=== PATIENT | female | born 1995 | race Caucasian/White ===

== ENCOUNTER 2021-01-31 03:43 | Inpatient (IN) | payer MEDICARE, SELFPAY ==
--- NOTE | 2021-01-30 07:40 | ECG_ITS ---
Test Reason : REPEAT Blood Pressure : / mmHG Vent. Rate : 130 BPM Atrial Rate : 130 BPM P-R Int : 132 ms QRS Dur : 082 ms QT Int : 302 ms P-R-T Axes : 049 027 035 degrees QTc Int : 444 ms Sinus tachycardia Nonspecific ST abnormality Abnormal ECG When compared with ECG of 31-JAN-2021 04:01, Vent. rate has increased BY [address] abnormality is now Present Referred By: Darryl Scruggs Electronically Signed By:RAIMUNDO WHITING
[2021-01-31] VITALS (21 sets, daily range): BP systolic 103–188; BP diastolic 52–96; PULSE 102–143; RESP 12–28; TEMP 36.4–37; O2SAT 93–100; BMI 44.7; BMI 44.8
--- NOTE | 2021-01-31 | ECG_ITS ---
Test Reason : SIEZER Blood Pressure : / mmHG Vent. Rate : 123 BPM Atrial Rate : 123 BPM P-R Int : 138 ms QRS Dur : 088 ms QT Int : 324 ms P-R-T Axes : 061 040 032 degrees QTc Int : 463 ms Sinus tachycardia Nonspecific ST abnormality Abnormal ECG When compared with ECG of 31-JAN-2021 05:02, No significant change was found Referred By: Darryl Scruggs Electronically Signed By:RAIMUNDO WHITING
--- NOTE | ~2021-01-31 | XR_ITS ---
EXAMINATION: XR CHEST CLINICAL INFORMATION: Hypoxemia. Rule out pneumonia. COMPARISON: None TECHNIQUE: Frontal view of the chest was obtained. FINDINGS: Exam is slightly limited due to apical lordotic technique. The lung volumes are low. The heart does not appear enlarged. There are increased left hilar markings particularly at the left lung base questionable for a pneumonia. The right lung is clear. There is no pleural effusion or pneumothorax. No acute bone abnormality is seen. XR/XR chest 1V IMPRESSION: Limited exam. Low lung volumes and question left perihilar/left base infiltrate.
--- NOTE | 2021-01-31 03:51 | ECG_ITS ---
Test Reason : OD Blood Pressure : / mmHG Vent. Rate : 083 BPM Atrial Rate : 083 BPM P-R Int : 136 ms QRS Dur : 082 ms QT Int : 370 ms P-R-T Axes : 071 053 048 degrees QTc Int : 434 ms Normal sinus rhythm with sinus arrhythmia Normal ECG No previous ECGs available Referred By: Raghu Yañez Electronically Signed By:RAIMUNDO WHITING
--- NOTE | 2021-01-31 03:54 | ED_ITS ---
HPI - Overdose General Chief Complaint: Overdose Stated Complaint: ? Time Seen by Provider: 01/31/21 03:51 Source: patient, EMS and police Mode of arrival: EMS Limitations: no limitations History of Present Illness HPI Narrative: 25-year-old female brought in by EMS for evaluation of overdose on her psych medication. 25-year-old female who intentionally overdosed on about 34 pills of Wellbutrin 300 mg each about 1 hour ago trying to kill herself, patient been feeling depressed lately for unclear reason, patient had history of overdose in the past due to major depression. Patient decline coingestion of any other medication in particular Tylenol or aspirin but admitted to smoking weed. Patient brought in by ambulance and the police under Section 12. Will keep the patient on one-to-one observation. Related Data Allergies Allergy/AdvReac Type Severity Reaction Status Date / Time amoxicillin [Prevpac] Allergy Unknown Verified 04/22/19 00:00 cephalexin [From KEFLEX] Allergy Unknown HIVES Unverified 02/16/20 19:11 clarithromycin [Prevpac] Allergy Unknown Verified 04/22/19 00:00 lansoprazole [Prevpac] Allergy Unknown Verified 04/22/19 00:00 omeprazole [Prilosec] Allergy Unknown Verified 01/17/19 00:00 Review of Systems Review of Systems: All other systems are reviewed and are negative Constitutional: Reports as per HPI and Reports no additional constitutional complaints Eyes: Reports as per HPI and Reports no additional eye complaints Reports system reviewed and no additional complaints, except as documented Cardiovascular: Reports as per HPI and Reports no additional cardiovascular complaints Respiratory: Reports as per HPI and Reports no additional respiratory complaints Gastrointestinal: Reports as per HPI and Reports no additional gastrointestinal complaints Genitourinary: Reports no additional female genitourinary complaints Musculoskeletal: Reports no additional musculoskeletal complaints Skin/Breast: Reports system reviewed and no additional complaints, except as docu Psychiatric: Reports no additional psychiatric complaints Endocrine: Reports no additional endocrine complaints Hematologic/Lymphatic: Reports no additional hematologic/lymphatic complaints Allergic/Immunologic: Reports no additional allergic/immunologic complaints Reports system reviewed and no additional complaints, except as documented and Reports Abnormal speech present [facility] Past Medical History Medical History (Updated 01/31/21 @ 04:03 by Annmarie Schmidt) Depersonalization disorder Depression PTSD (post-traumatic stress disorder) Social History Social History Alcohol intake: never Patient Tobacco Use Status: Current everyday Tobacco user Use of substances other than those prescribed or required for medical reasons: Yes Substance Use Type: Crack/Cocaine and Marijuana Substance Use Frequency: Weekly Last Used Substance: Just Prior to Admission Any prior treatment program specific to substance use: No Advance Directives: No Advance Directives Information Provided: Yes Physical Exam Vital Signs: Vital Signs: Last Vital Signs Pulse 143 H 01/31/21 04:42 Resp 14 01/31/21 04:42 BP 160/96 H 01/31/21 04:42 Pulse Ox 99 01/31/21 04:42 Body Mass Index 44.7 Vital signs have been reviewed as appeared to be correct. Blood pressure normal. Heart rate normal. Respiration rate normal. Temperature normal. Oxygen saturation normal. Appearance: Alert. Oriented X3. No acute distress. Head: Normal external exam. Normocephalic. Atraumatic. No Stinson signs noted. No raccoon eyes noted Eyes: PERRLA. EOMI. Conjunctiva and sclera normal. Eyelids normal. ENT: TM's Normal. Pharynx normal. Uvula midline. Moist mucous membranes. No trismus noted. No drooling noted. No muffled voice noted. Neck: Normal inspection. Neck supple. FROM. No adenopathy. Thyroid Normal. No meningeal signs. No neck mass noted. CVS: Normal heart rate and rhythm. Heart sound normal. No murmurs noted. Pulses normal throughout. Respiratory: No respiratory distress. Painless inspiration. Breath sounds normal. No wheezes/rales/rhonchi noted. Chest nontender. No accessory muscle usage noted or decreased air movement noted. Abdomen: Soft and nontender. Bowel sounds normal in all 4 quadrants. No distention noted. No organomegaly noted. No visible injury noted. Back: No CVA tenderness. Full range of motion noted. Skin: Skin warm and dry. Normal skin color. Normal skin turgor. No rashes/lesions/lacerations noted. Extremities: No lower extremity edema. Extremities exhibit normal range of motion. Extremities nontender. Neuro: Oriented X 3. Cranial nerve exam: II-XII are grossly intact No motor deficit. No sensory deficit. Reflexes normal. Course Course Course Narrative: Assessment and plan. 25-year-old female status post intention overdose on Wellbutrin patient took 34 pills of 300 mg each of Wellbutrin about 1 hour before arrival, patient under [place] 12 by the police. At the moment patient is awake and alert protecting her own airway. Wellbutrin and this high dose ingestion can cause a potential hypotension/bradycardia/tachycardia/hallucinations/seizure. Poison Control Center was consulted who recommend to monitor airway and consider airway protection if patient unable to protect it, GoLYTELY, activated charcoal, ICU admission and monitoring for at least 24 hours, psych evaluation when she is medically cleared. Reevaluation(s) Reevaluation #1: Patient is awake alert oriented x3, heart rate is 140 EKG was performed showed sinus tachycardia with normal intervals. Patient still feel nauseous but no vomiting, no change in the patient mental status. Case discussed with Dr. henry at ICU who accepted the patient to be monitored for 24 hours in ICU. Time: 05:06 MDM - Overdose Lab Data Attestation: I reviewed the patient's lab results. Result diagrams: 01/31/21 04:06 01/31/21 04:06 Labs: Lab Results 01/31/21 01/31/21 01/31/21 Range/Units 04:06 04:06 04:06 WBC 15.3 H (4.8-10.8) X10*3/uL RBC 4.52 (4.20-5.50) X10*6/uL Hgb 14.5 (12.0-16.0) g/dl Hct 41.8 (37-47) % MCV 92.5 (80-98) fL MCH 32.1 (27.0-33.0) pg MCHC 34.7 (31.0-35.0) g/dl RDW 12.9 (11.0-16.0) % Plt Count 327 (160-400) X10*3/uL MPV 10.2 (9.4-12.3) fL Immature Gran % (Auto) 0.3 (0.0-0.4) % Neut % (Auto) 60.2 (45-73) % Lymph % (Auto) 31.5 (20-40) % [place] % (Auto) 6.7 (2-11) % Eos % (Auto) 1.0 (0-4) % Baso % (Auto) 0.3 (0-2) % Lymph # (Auto) 4.8 (1.2-4.9) X10*3/uL [place] # (Auto) 1.0 (0.1-1.2) X10*3/uL Eos # (Auto) 0.2 (0.0-0.4) X10*3/uL Baso # (Auto) 0.0 (0.0-0.2) X10*3/uL Abs Immat Gran (auto) 0.04 H (0.00-0.03) X10*3/uL Absolute Neuts (auto) 9.2 H (2.0-8.3) X10*3/uL Absolute Nucleated RBC 0.000 (0.0-0.012) X10*3/uL Nucleated RBC % (auto) 0.0 (0.0-0.2) /100WBC Sodium 135 (135-145) mmol/L Potassium 4.1 (3.3-5.1) mmol/L Chloride 104 (96-108) mmol/L Carbon Dioxide 19 L (22-29) mmol/L Anion Gap 16 (12-20) BUN 13 (9-16) mg/dL Creatinine 0.75 (0.5-1.4) mg/dL Estim Creat Clear Calc 146.3 Estimated GFR > 60 Random Glucose 107 (60-115) mg/dL Calcium 9.4 (8.4-10.2) mg/dL Total Bilirubin 0.3 (0.0-1.0) mg/dL Direct Bilirubin < 0.2 (0.0-0.5) mg/dL AST 25 (5-31) U/L ALT 25 (0-31) U/L Alkaline Phosphatase 69 (39-117) U/L Total Protein 7.2 (6.5-8.0) g/dL Albumin 4.2 (3.5-5.0) g/dL Lipase 13 (8-78) U/L Urine Color Urine Appearance Urine pH (5.0-8.0) Ur Specific [place] (1.005-1.025) Urine Protein (NEG-TRACE) MG/DL Urine Glucose (UA) (NEG) MG/DL Urine Ketones (NEG) MG/DL Urine Blood (NEG) Urine Nitrite (NEG) Ur Leukocyte Esterase (NEG) Urine Test (NEGATIVE) Salicylates < 5.0 L (15-30) mg/dL Urine Opiates Screen (Not Detect) Urine Fentanyl Screen (Not Detect) Acetaminophen < 1 (<30) mcg/mL Ur Barbiturates Screen (Not Detect) Ur Phencyclidine Scrn (Not Detect) Ur Amphetamines Screen (Not Detect) U Benzodiazepines Scrn (Not Detect) Urine Cocaine Screen (Not Detect) U Marijuana (THC) Screen (Not Detect) Ethyl Alcohol mg/dL COVID-19 (DYLAN) Negative (Negative) COVID-19 Clin Com See Note 01/31/21 01/31/21 01/31/21 Range/Units 04:06 Unknown Unknown WBC (4.8-10.8) X10*3/uL RBC (4.20-5.50) X10*6/uL Hgb (12.0-16.0) g/dl Hct (37-47) % MCV (80-98) fL MCH (27.0-33.0) pg MCHC (31.0-35.0) g/dl RDW (11.0-16.0) % Plt Count (160-400) X10*3/uL MPV (9.4-12.3) fL Immature Gran % (Auto) (0.0-0.4) % Neut % (Auto) (45-73) % Lymph % (Auto) (20-40) % [place] % (Auto) (2-11) % Eos % (Auto) (0-4) % Baso % (Auto) (0-2) % Lymph # (Auto) (1.2-4.9) X10*3/uL [place] # (Auto) (0.1-1.2) X10*3/uL Eos # (Auto) (0.0-0.4) X10*3/uL Baso # (Auto) (0.0-0.2) X10*3/uL Abs Immat Gran (auto) (0.00-0.03) X10*3/uL Absolute Neuts (auto) (2.0-8.3) X10*3/uL Absolute Nucleated RBC (0.0-0.012) X10*3/uL Nucleated RBC % (auto) (0.0-0.2) /100WBC Sodium (135-145) mmol/L Potassium (3.3-5.1) mmol/L Chloride (96-108) mmol/L Carbon Dioxide (22-29) mmol/L Anion Gap (12-20) BUN (9-16) mg/dL Creatinine (0.5-1.4) mg/dL Estim Creat Clear Calc Estimated GFR Random Glucose (60-115) mg/dL Calcium (8.4-10.2) mg/dL Total Bilirubin (0.0-1.0) mg/dL Direct Bilirubin (0.0-0.5) mg/dL AST (5-31) U/L ALT (0-31) U/L Alkaline Phosphatase (39-117) U/L Total Protein (6.5-8.0) g/dL Albumin (3.5-5.0) g/dL Lipase (8-78) U/L Urine Color YELLOW Urine Appearance CLEAR Urine pH 6.0 (5.0-8.0) Ur Specific [place] 1.015 (1.005-1.025) Urine Protein NEG (NEG-TRACE) MG/DL Urine Glucose (UA) NEG (NEG) MG/DL Urine Ketones NEG (NEG) MG/DL Urine Blood NEG (NEG) Urine Nitrite NEG (NEG) Ur Leukocyte Esterase NEG (NEG) Urine Test NEGATIVE (NEGATIVE) Salicylates (15-30) mg/dL Urine Opiates Screen (Not Detect) Urine Fentanyl Screen (Not Detect) Acetaminophen (<30) mcg/mL Ur Barbiturates Screen (Not Detect) Ur Phencyclidine Scrn (Not Detect) Ur Amphetamines Screen (Not Detect) U Benzodiazepines Scrn (Not Detect) Urine Cocaine Screen (Not Detect) U Marijuana (THC) Screen (Not Detect) Ethyl Alcohol < 10 mg/dL COVID-19 (DYLAN) (Negative) COVID-19 Clin Com 01/31/21 Range/Units Unknown WBC (4.8-10.8) X10*3/uL RBC (4.20-5.50) X10*6/uL Hgb (12.0-16.0) g/dl Hct (37-47) % MCV (80-98) fL MCH (27.0-33.0) pg MCHC (31.0-35.0) g/dl RDW (11.0-16.0) % Plt Count (160-400) X10*3/uL MPV (9.4-12.3) fL Immature Gran % (Auto) (0.0-0.4) % Neut % (Auto) (45-73) % Lymph % (Auto) (20-40) % [place] % (Auto) (2-11) % Eos % (Auto) (0-4) % Baso % (Auto) (0-2) % Lymph # (Auto) (1.2-4.9) X10*3/uL [place] # (Auto) (0.1-1.2) X10*3/uL Eos # (Auto) (0.0-0.4) X10*3/uL Baso # (Auto) (0.0-0.2) X10*3/uL Abs Immat Gran (auto) (0.00-0.03) X10*3/uL Absolute Neuts (auto) (2.0-8.3) X10*3/uL Absolute Nucleated RBC (0.0-0.012) X10*3/uL Nucleated RBC % (auto) (0.0-0.2) /100WBC Sodium (135-145) mmol/L Potassium (3.3-5.1) mmol/L Chloride (96-108) mmol/L Carbon Dioxide (22-29) mmol/L Anion Gap (12-20) BUN (9-16) mg/dL Creatinine (0.5-1.4) mg/dL Estim Creat Clear Calc Estimated GFR Random Glucose (60-115) mg/dL Calcium (8.4-10.2) mg/dL Total Bilirubin (0.0-1.0) mg/dL Direct Bilirubin (0.0-0.5) mg/dL AST (5-31) U/L ALT (0-31) U/L Alkaline Phosphatase (39-117) U/L Total Protein (6.5-8.0) g/dL Albumin (3.5-5.0) g/dL Lipase (8-78) U/L Urine Color Urine Appearance Urine pH (5.0-8.0) Ur Specific [place] (1.005-1.025) Urine Protein (NEG-TRACE) MG/DL Urine Glucose (UA) (NEG) MG/DL Urine Ketones (NEG) MG/DL Urine Blood (NEG) Urine Nitrite (NEG) Ur Leukocyte Esterase (NEG) Urine Test (NEGATIVE) Salicylates (15-30) mg/dL Urine Opiates Screen Not Detected (Not Detect) Urine Fentanyl Screen Not Detected (Not Detect) Acetaminophen (<30) mcg/mL Ur Barbiturates Screen Not Detected (Not Detect) Ur Phencyclidine Scrn Not Detected (Not Detect) Ur Amphetamines Screen Not Detected (Not Detect) U Benzodiazepines Scrn Not Detected (Not Detect) Urine Cocaine Screen POSITIVE H (Not Detect) U Marijuana (THC) Screen POSITIVE H (Not Detect) Ethyl Alcohol mg/dL COVID-19 (DYLAN) (Negative) COVID-19 Clin Com ECG Data Interpretation: EKG 1. Normal sinus rhythm at 83 beats per minutes, normal axis deviation, normal intervals, no ST-T changes. EKG 2. Sinus tachycardia at 130 beats per minutes, normal axis deviation, normal intervals, no ST-T changes. Critical Care Time Critical Care Time Critical Care Time: Yes Total Critical Care Time: 60 Attestation: I spent 60 minutes providing critical care service to the patient, this including time spent at the bedside to evaluate the patient, reassess the patient, monitoring vital signs, review labs, and radiographic studies, counseling the patient/family, discussing the case with consultants, disposition the patient. Discharge Plan Discharge Patient Disposition: Admitted As Inpatient
[2021-01-31 04:12] LABS: MANUAL DIFF FLAG NO
[2021-01-31 04:14] LABS: Basophils Percent Auto 0.3 % (0-2); Eosinophils Absolute Auto 0.2 X10*3/uL (0.0-0.4); Hematocrit 41.8 % (37-47); Hemoglobin 14.5 g/dl (12.0-16.0); Imm Gran Abs Auto 0.04 X10*3/uL (0.00-0.03); Imm Gran Pct Auto 0.3 % (0.0-0.4); Lymphocytes Absolute Auto 4.8 X10*3/uL (1.2-4.9); Lymphocytes Percent Auto 31.5 % (20-40); Mean Corpuscular HGB Conc 34.7 g/dl (31.0-35.0); Mean Corpuscular Hemoglobin 32.1 pg (27.0-33.0); Mean Corpuscular Volume 92.5 fL (80-98); Mean Platelet Volume 10.2 fL (9.4-12.3); Monocytes Percent Auto 6.7 % (2-11); Neutrophils Absolute Auto 9.2 X10*3/uL (2.0-8.3); Neutrophils Percent Auto 60.2 % (45-73); Platelet Count 327 X10*3/uL (160-400); Red Blood Count 4.52 X10*6/uL (4.20-5.50); Red Cell Distribution Width 12.9 % (11.0-16.0); White Blood Count 15.3 X10*3/uL (4.8-10.8)
[2021-01-31] MEDS: Activated charcoaL 50 GM/240 ML ORAL.SUSP PO (04:22)
[2021-01-31] MEDS: ondansetron HCL 4 MG/2 ML VIAL IVPUSH (04:23)
[2021-01-31] MEDS: 0.9 % Sodium Chloride 1,000 ML 999 ML IVCONT (04:23)
[2021-01-31 04:27] LABS: COVID-19 Test Negative (Negative); IDNOW Serial# 9DD0AD1C
[2021-01-31 04:34] LABS: Ethanol < 10 mg/dL
[2021-01-31 04:36] LABS: Acetaminophen LAB < 1 mcg/mL (<30); Alanine Aminotransferase 25 U/L (0-31); Albumin Level 4.2 g/dL (3.5-5.0); Alkaline Phosphatase 69 U/L (39-117); Anion Gap 16 (12-20); Aspartate Amino Transferase 25 U/L (5-31); Bilirubin Direct < 0.2 mg/dL (0.0-0.5); Bilirubin Total 0.3 mg/dL (0.0-1.0); Blood Urea Nitrogen 13 mg/dL (9-16); Calcium 9.4 mg/dL (8.4-10.2); Carbon Dioxide 19 mmol/L (22-29); Chloride 104 mmol/L (96-108); Creatinine Clr Calc Pharmacy 146.3; Estimated Glomerular Filt Rate > 60; Glucose Random 107 mg/dL (60-115); Lipase 13 U/L (8-78); Potassium 4.1 mmol/L (3.3-5.1); Salicylate < 5.0 mg/dL (15-30); Sodium 135 mmol/L (135-145); Total Protein 7.2 g/dL (6.5-8.0)
--- NOTE | 2021-01-31 04:45 | PC.NURSE ---
pt is section 12 after taking 34pills of 300mg of wellbutrin. pt is A&O. no sob or chest pain. pt is able to answer all questions appropriately. medicated per EMAR. Poision control called and did speak with provider. Pt is tachy with a heart 130-high 140's at this time and hypertension. Provider is aware. Repeat EKg .
[2021-01-31 04:46] LABS: Appearance Urine CLEAR; Color Urine YELLOW; Glucose Urine UA NEG (NEG); Leukocyte Esterase Urine NEG (NEG); Nitrite Urine NEG (NEG); Specific Gravity - Urine 1.015 (1.005-1.025); UACC Culture Trigger NO; Urine Blood NEG (NEG); Urine Ketones NEG (NEG); Urine Protein NEG (NEG-TRACE)
[2021-01-31 04:47] LABS: UPreg QC Valid YES; Urine Pregnancy NEGATIVE (NEGATIVE)
[2021-01-31] MEDS: PEG 3350/Na Sulf,Bicarb,Cl/KCL 4,000 ML SOLN.RECON 240 ML PO ×5 (04:54→06:35)
--- NOTE | 2021-01-31 04:57 | PC.NURSE ---
pt report hallucinations, provider is aware.
[2021-01-31 04:59] LABS: Amphetamine Screen Urine Not Detected (Not Detect); Barbiturates, Urine Not Detected (Not Detect); Benzodiazepines Screen Urine Not Detected (Not Detect); Cannabinoid Screen Urine POSITIVE (Not Detect); Cocaine Screen Urine POSITIVE (Not Detect); Fentanyl, urine Not Detected (Not Detect); Opiate Screen Urine Not Detected (Not Detect); Phencyclidine Screen Urine Not Detected (Not Detect)
--- NOTE | 2021-01-31 04:59 | PC.NURSE ---
provider in to assess pt, pt is able to answer question appropriately, pt is A&O
--- NOTE | 2021-01-31 05:06 | P.HPCC_ITS ---
History of Present Illness Date of Service: 01/31/21 Chief Complaint: Suicidal attempt with Wellbutrin HPI: ?25-year-old patient with history of anxiety, depression, prior suicidal attempts by pill ingestion, history of cocaine use, presents to our services after being seen in the emergency room due to suicidal attempt, is known the patient was brought by EMS and polys after intentionally taking approximately 34 pills of Wellbutrin) 300 mg each) this happened approximately 230 in the morning.? Patient admitted to smoking marijuana but denied the possibility of ingesting this pills with alcohol or other substances such as Tylenol or aspirin.? The patient was brought on the [address]. Patient is not willing to talk to me about why she did this.? Currently states that the only thing that she feels is her heart beating a little fast. When asked about hallucinations of any kind, homicidal ideation or the reasons of her attempt, the patient did not want to speak about it. Emergency room her workup was significant for white count 15.3 carbon dioxide of 19 and a U tox screen negative for salicylates, Tylenol but positive for cocaine and marijuana.? COVID-19 negative.? All other labs were unremarkable.? Patient remains hemodynamically stable and there is no QT prolongation at this point. ?ROS:? Unable to obtain, patient not volunteering this information. ?Past Medical History: ?As above Past Surgical History:? Endoscopy ?Family history: ?Unknown ?Social History:? Lives with her boyfriend, smokes 1 pack of cigarettes per day, admits to social alcohol, admits to use of cocaine in the past but not for a while. ?CODE STATUS: ?Full code ?Allergies: ?Amoxicillin, Keflex, lansoprazole, pretzel, clarithromycin (hives Home Medications:? As above PHYSICAL EXAM: VS: ?130/85, 122, 17, 95% on room air. General:? Alert oriented x3 no acute distress.? Speaking full sentences.? Speech is well articulated, thought process is coherent.? Following all commands.? Slow speech, poor eye contact. Skin:? Multiple tattoos throughout the body specially bilateral upper extremities.? Intact, no lesions, edema, erythema, clubbing or cyanosis.? No ulcers. HEENT:? Head is normocephalic, atraumatic, pupils equal round reactive to light accommodation bilaterally.? Extraocular movements appear intact.? Buccal mucosa is moist, Neck is supple without lymphadenopathy. Cardiac:? Clear S1-S2, tachycardic 120 beats per minute.? No murmurs, rubs, gallops. Pulmonary:? Clear to auscultation, no wheezes, rales or rhonchi. Abdomen:? Protuberant, positive bowel sounds in all 4 quadrants.? Soft, nontender, no rebound or guarding.? Musculoskeletal:? Moving all 4 extremities upon request a major joints, there is no crepitus or tenderness.? The strength is 5/5 bilaterally and throughout all 4 extremities.? There is no leg edema , no calf tenderness , no leg asymmetry.? Gait not assessed at this point. Neurologic:? As above, cranial nerves 2-12 are grossly intact.? No focal deficits noted. Motor strength as above.? Vascular:? 2+ pulses upper and lower extremities distally. ? SIGNIFICANT LABORATORY DATA:? As above REVIEW OF IMAGES: ?No images. EKG REVIEW: ?Sinus rhythm 83 beats per minute.? No ST elevations, no depressions.? QTC 434. No comparison. ASSESSMENT AND PLAN: 1. Intentional overdose with Wellbutrin 2. Suicidal ideation 3. Polysubstance abuse 4. History of depression anxiety 5. Reactive tachycardia Admit to ICU, monitor I's and O's, telemetry, gentle IV fluids, one-to-one surveillance, psychiatric evaluation, monitor labs. Pt is getting joanne and Poison control was contacted by ER. If stable after 24 hours she can transition to the next level of care. In the meantime watch for seizures, severe hypertension, arrhythmias, signifi cant hyponatremia although unlikely for these usually presents in early times. Otherwise normal effects from this medication may be headache, nausea, diaphoresis, dizziness GI PROPHYLAXIS: ?No need at this point. DVT PROPHYLAXIS:? Pneumatic stockings and early ambulation ? Critical care time used for critical evaluation of this patient, diagnosis, treatment and coordination of care, review her records and documentation TOTAL CRITICAL CARE TIME 90 MIN . Patient's care was discussed in detail with Dr. Scruggs.? He is aware of all the above as well as the plan of care for this patient. [facility] Past Medical History Medical History (Updated 01/31/21 @ 06:12 by Annmarie Schmidt) Depersonalization disorder Depression PTSD (post-traumatic stress disorder) Social History Social History Household Members: Significant Other and Family Housing: House Do you presently have visiting nurse or other home services: No Unable to assess alcohol history related to: Unable to respond Alcohol intake: never Patient Tobacco Use Status: Current everyday Tobacco user Tobacco use type: Cigarette Use of substances other than those prescribed or required for medical reasons: Yes Substance Use Type: Crack/Cocaine and Marijuana Substance Use Frequency: Weekly Last Used Substance: Just Prior to Admission Currently Displaying Signs/Symptoms of Drug Intoxication Withdrawal: Yes Any prior treatment program specific to substance use: No Have you been hit, kicked, punched, or otherwise hurt by someone within the past year? If so, by whom?: No Do you feel safe in your current relationship?: Yes Is there a partner from a previous relationship who is making you feel unsafe now?: No Are you made to feel afraid or neglected: No Advance Directives: No Advance Directives Information Provided: Yes Do you have thoughts of harming others: None Do you have a plan to hurt others: No Plan Recently lost weight without trying: Unsure Nutrition Risks: No Nutritional Risk Patient : No : No Poor oral hygiene: No Meds Allergies Allergy/AdvReac Type Severity Reaction Status Date / Time amoxicillin [Prevpac] Allergy Unknown Verified 04/22/19 00:00 cephalexin [From KEFLEX] Allergy Unknown HIVES Unverified 02/16/20 19:11 clarithromycin [Prevpac] Allergy Unknown Verified 04/22/19 00:00 lansoprazole [Prevpac] Allergy Unknown Verified 04/22/19 00:00 omeprazole [Prilosec] Allergy Unknown Verified 01/17/19 00:00 Active Medications: Current Medications Generic Name Dose Route Start Last Admin Trade Name Freq PRN Reason Stop Dose Admin Polyethylene Glycol/Electrolytes 240 ml 01/31/21 04:15 01/31/21 05:05 Peg 3350/Na Sulf,Bicarb,Cl/Kcl 4,000 Ml Soln.Recon PO 01/31/21 06:56 240 ml Q10M LONG Administration Home Medications Medication Instructions Recorded Confirmed Last Taken Type aripiprazole 5 mg tablet 1 tab PO BEDTIME 01/31/21 01/31/21 Unknown History bupropion HCl 300 mg 24 hr tablet, 1 tab PO DAILY 01/31/21 01/31/21 Unknown History extended release sertraline 100 mg tablet 2 tab PO DAILY 01/31/21 01/31/21 Unknown History Physical Exam Vital Signs: Vital Signs: Last Vital Signs Pulse 143 H 01/31/21 04:42 Resp 14 01/31/21 04:42 BP 160/96 H 01/31/21 04:42 Pulse Ox 99 01/31/21 04:42 Body Mass Index 44.7 Results Labs CBC and Chem 7: 01/31/21 04:06 01/31/21 16:55 Labs: Laboratory Results - last 24 hr 01/31/21 01/31/21 01/31/21 04:06 04:06 04:06 MCV 92.5 MCH 32.1 MCHC 34.7 RDW 12.9 Plt Count 327 MPV 10.2 Immature Gran % (Auto) 0.3 Neut % (Auto) 60.2 Lymph % (Auto) 31.5 [place] % (Auto) 6.7 Eos % (Auto) 1.0 Baso % (Auto) 0.3 Lymph # (Auto) 4.8 [place] # (Auto) 1.0 Eos # (Auto) 0.2 Baso # (Auto) 0.0 Abs Immat Gran (auto) 0.04 H Absolute Neuts (auto) 9.2 H Absolute Nucleated RBC 0.000 Nucleated RBC % (auto) 0.0 Anion Gap 16 Estim Creat Clear Calc 146.3 Estimated GFR > 60 Random Glucose 107 Calcium 9.4 Total Bilirubin 0.3 Direct Bilirubin < 0.2 AST 25 ALT 25 Alkaline Phosphatase 69 Total Protein 7.2 Albumin 4.2 Lipase 13 Urine Color Urine Appearance Urine pH Ur Specific [place] Urine Protein Urine Glucose (UA) Urine Ketones Urine Blood Urine Nitrite Ur Leukocyte Esterase Urine Test Salicylates < 5.0 L Urine Opiates Screen Urine Fentanyl Screen Acetaminophen < 1 Ur Barbiturates Screen Ur Phencyclidine Scrn Ur Amphetamines Screen U Benzodiazepines Scrn Urine Cocaine Screen U Marijuana (THC) Screen Ethyl Alcohol COVID-19 (DYLAN) Negative COVID-19 Clin Com See Note 01/31/21 01/31/21 01/31/21 04:06 Unknown Unknown MCV MCH MCHC RDW Plt Count MPV Immature Gran % (Auto) Neut % (Auto) Lymph % (Auto) [place] % (Auto) Eos % (Auto) Baso % (Auto) Lymph # (Auto) [place] # (Auto) Eos # (Auto) Baso # (Auto) Abs Immat Gran (auto) Absolute Neuts (auto) Absolute Nucleated RBC Nucleated RBC % (auto) Anion Gap Estim Creat Clear Calc Estimated GFR Random Glucose Calcium Total Bilirubin Direct Bilirubin AST ALT Alkaline Phosphatase Total Protein Albumin Lipase Urine Color YELLOW Urine Appearance CLEAR Urine pH 6.0 Ur Specific [place] 1.015 Urine Protein NEG Urine Glucose (UA) NEG Urine Ketones NEG Urine Blood NEG Urine Nitrite NEG Ur Leukocyte Esterase NEG Urine Test NEGATIVE Salicylates Urine Opiates Screen Urine Fentanyl Screen Acetaminophen Ur Barbiturates Screen Ur Phencyclidine Scrn Ur Amphetamines Screen U Benzodiazepines Scrn Urine Cocaine Screen U Marijuana (THC) Screen Ethyl Alcohol < 10 COVID-19 (DYLAN) COVID-19 [employer] 01/31/21 Unknown MCV MCH MCHC RDW Plt Count MPV Immature Gran % (Auto) Neut % (Auto) Lymph % (Auto) [place] % (Auto) Eos % (Auto) Baso % (Auto) Lymph # (Auto) [place] # (Auto) Eos # (Auto) Baso # (Auto) Abs Immat Gran (auto) Absolute Neuts (auto) Absolute Nucleated RBC Nucleated RBC % (auto) Anion Gap Estim Creat Clear Calc Estimated GFR Random Glucose Calcium Total Bilirubin Direct Bilirubin AST ALT Alkaline Phosphatase Total Protein Albumin Lipase Urine Color Urine Appearance Urine pH Ur Specific [place] Urine Protein Urine Glucose (UA) Urine Ketones Urine Blood Urine Nitrite Ur Leukocyte Esterase Urine Test Salicylates Urine Opiates Screen Not Detected Urine Fentanyl Screen Not Detected Acetaminophen Ur Barbiturates Screen Not Detected Ur Phencyclidine Scrn Not Detected Ur Amphetamines Screen Not Detected U Benzodiazepines Scrn Not Detected Urine Cocaine Screen POSITIVE H U Marijuana (THC) Screen POSITIVE H Ethyl Alcohol COVID-19 (DYLAN) COVID-19 [employer] Com
--- NOTE | 2021-01-31 05:19 | PC.NURSE ---
pt still a&O, able to speak in full sentences. pt on monitor with tachycardia heart rate in 130's.
--- NOTE | 2021-01-31 05:33 | PC.NURSE ---
pt still A&O, no sob or chest pain. pt watching TV, Calm and cooperative. Warm blanket given . Pt remains on 1:1.
--- NOTE | 2021-01-31 05:50 | PC.NURSE ---
per pt request notified pt boyfriend of her admission.
[2021-01-31] MEDS: 0.9 % Sodium Chloride 1,000 ML 80 ML IVCONT ×2 (07:00→18:03)
[2021-01-31] MEDS: LORazepam 2 MG/ML VIAL IVPUSH (07:28)
--- NOTE | 2021-01-31 07:57 | MHC.CARE ---
CARE Team consult to placed when Pt is medically stable.
--- NOTE | 2021-01-31 08:00 | MHC.CARE ---
Pt should be referred to CARE Team for assessment once medically clear.
[2021-01-31 09:40] LABS: Anion Gap 15 (12-20); Blood Urea Nitrogen 12 mg/dL (9-16); Calcium 8.6 mg/dL (8.4-10.2); Carbon Dioxide 19 mmol/L (22-29); Chloride 109 mmol/L (96-108); Creatinine Clr Calc Pharmacy 116.8; Estimated Glomerular Filt Rate > 60; Glucose Random 103 mg/dL (60-115); Phosphorus 3.6 mg/dL (2.7-4.5); Potassium 3.6 mmol/L (3.3-5.1); Sodium 139 mmol/L (135-145)
--- NOTE | 2021-01-31 10:00 | ECG_ITS ---
Test Reason : ST Blood Pressure : / mmHG Vent. Rate : 121 BPM Atrial Rate : 121 BPM P-R Int : 146 ms QRS Dur : 090 ms QT Int : 324 ms P-R-T Axes : 050 024 039 degrees QTc Int : 460 ms Sinus tachycardia Possible Inferior infarct , age undetermined Nonspecific ST abnormality Abnormal ECG When compared with ECG of 31-JAN-2021 07:56, No significant change was found Referred By: Darryl Scruggs Electronically Signed By:RAIMUNDO WHITING
--- NOTE | 2021-01-31 14:06 | ECG_ITS ---
Test Reason : ST Blood Pressure : / mmHG Vent. Rate : 123 BPM Atrial Rate : 123 BPM P-R Int : 144 ms QRS Dur : 090 ms QT Int : 336 ms P-R-T Axes : 048 022 020 degrees QTc Int : 481 ms Sinus tachycardia Possible Inferior infarct (cited on or before 31-JAN-2021) Abnormal ECG When compared with ECG of 31-JAN-2021 10:16, No significant change was found Referred By: Darryl Scruggs Electronically Signed By:RAIMUNDO WHITING
[2021-01-31 15:14] LABS: Glucose, Whole Blood 110 mg/dL (60-115)
--- NOTE | 2021-01-31 15:39 | P.PNCC_ITS ---
Subjective Subjective Date of Service: 01/31/21 Critical Care Time (minutes): 0 Comment: Ms. Riggins was admitted to the ICU this morning after being brought to the ED after suicide attempt by Wellbutrin overdose. The patient is a 25-year-old woman with history of anxiety, depression, prior suicidal attempts by pill ingestion, history of cocaine use.? She was brought into the ED early this morning by EMS and police after intentionally taking 34 pills of Wellbutrin XR 300 mg each in a suicide attempt.? Was feeling depressed lately for unclear reasons.? The patient denied coingestion of any other medication, but admitted to smoking weed. Vital signs in the ED were notable for tachycardia and hypertension.? She was breathing easy with sat of 99% on room air.? She was normothermic.? General physical exam was only remarkable for morbid obesity. Laboratory studies in the ED were notable only for a mild leukocytosis and a serum bicarb of 19.? BUN and creatinine were 13/0.7.? Salicylate acetaminophen and ethyl alcohol levels were all negative.? Urine tox screen was positive only for cocaine and marijuana. In consultation with poison Control, the patient was given activated charcoal, and GoLYTELY.? Her heart rate slowly came down.? The patient was admitted to the ICU. The patient had a seizure this morning at about 7am that self-terminated after about 30 secs.? She was given 2 mg of Ativan.? Seizure has not recurred.? Mental status has been altered for much of the day, including hallucinations.? This afternoon she is alert and sometimes appropriate, sometimes saying things that don?t make sense.? Vital signs continue stable although heart rate is still 120. Breathing easy with sat of 96-99% on room air.? She?s somewhat tremulous.? No neuro deficits.? She?s had a sitter with her all day. ? Repeat chemistries at 9am were unremarkable except for continued bicarb level of 19, and potassium of 3.6.? She was given 40 mEq oral KCl.? She is still taking the GoLYTELY.? Serial EKGs are unremarkable. IMPRESSION:? 25-year-old woman with history of major depression and previous suicide attempts, admitted to the ICU after deliberate Wellbutrin overdose. Continuing to closely monitor rhythm, hemodynamics, electrolytes, and EKG.? Continuing sitter. Time:? [id number] Physical Exam Vital Signs: Vital Signs: Last Vital Signs Temp 97.5 F 01/31/21 08:00 Pulse 129 H 01/31/21 15:00 Resp 24 H 01/31/21 15:00 BP 105/57 L 01/31/21 15:00 Pulse Ox 95 01/31/21 15:00 Body Mass Index 44.8 Objective Data Labs CBC & Chem 7: 01/31/21 04:06 01/31/21 08:50 Labs: Laboratory Results - last 24 hr 01/31/21 01/31/21 01/31/21 04:06 04:06 04:06 WBC 15.3 H RBC 4.52 Hgb 14.5 Hct 41.8 MCV 92.5 MCH 32.1 MCHC 34.7 RDW 12.9 Plt Count 327 MPV 10.2 Immature Gran % (Auto) 0.3 Neut % (Auto) 60.2 Lymph % (Auto) 31.5 [place] % (Auto) 6.7 Eos % (Auto) 1.0 Baso % (Auto) 0.3 Lymph # (Auto) 4.8 [place] # (Auto) 1.0 Eos # (Auto) 0.2 Baso # (Auto) 0.0 Abs Immat Gran (auto) 0.04 H Absolute Neuts (auto) 9.2 H Absolute Nucleated RBC 0.000 Nucleated RBC % (auto) 0.0 Sodium 135 Potassium 4.1 Chloride 104 Carbon Dioxide 19 L Anion Gap 16 BUN 13 Creatinine 0.75 Estim Creat Clear Calc 146.3 Estimated GFR > 60 POC Glucose Random Glucose 107 Calcium 9.4 Phosphorus Magnesium Total Bilirubin 0.3 Direct Bilirubin < 0.2 AST 25 ALT 25 Alkaline Phosphatase 69 Total Protein 7.2 Albumin 4.2 Lipase 13 Urine Color Urine Appearance Urine pH Ur Specific [place] Urine Protein Urine Glucose (UA) Urine Ketones Urine Blood Urine Nitrite Ur Leukocyte Esterase Urine Test Salicylates < 5.0 L Urine Opiates Screen Urine Fentanyl Screen Acetaminophen < 1 Ur Barbiturates Screen Ur Phencyclidine Scrn Ur Amphetamines Screen U Benzodiazepines Scrn Urine Cocaine Screen U Marijuana (THC) Screen Ethyl Alcohol COVID-19 (DYLAN) Negative COVID-19 Clin Com See Note 01/31/21 01/31/21 01/31/21 04:06 08:50 15:10 WBC RBC Hgb Hct MCV MCH MCHC RDW Plt Count MPV Immature Gran % (Auto) Neut % (Auto) Lymph % (Auto) [place] % (Auto) Eos % (Auto) Baso % (Auto) Lymph # (Auto) [place] # (Auto) Eos # (Auto) Baso # (Auto) Abs Immat Gran (auto) Absolute Neuts (auto) Absolute Nucleated RBC Nucleated RBC % (auto) Sodium 139 Potassium 3.6 Chloride 109 H Carbon Dioxide 19 L Anion Gap 15 BUN 12 Creatinine 0.94 Estim Creat Clear Calc 116.8 Estimated GFR > 60 POC Glucose 110 Random Glucose 103 Calcium 8.6 D Phosphorus 3.6 Magnesium 2.0 Total Bilirubin Direct Bilirubin AST ALT Alkaline Phosphatase Total Protein Albumin Lipase Urine Color Urine Appearance Urine pH Ur Specific [place] Urine Protein Urine Glucose (UA) Urine Ketones Urine Blood Urine Nitrite Ur Leukocyte Esterase Urine Test Salicylates Urine Opiates Screen Urine Fentanyl Screen Acetaminophen Ur Barbiturates Screen Ur Phencyclidine Scrn Ur Amphetamines Screen U Benzodiazepines Scrn Urine Cocaine Screen U Marijuana (THC) Screen Ethyl Alcohol < 10 COVID-19 (DYLAN) COVID-19 [employer] 01/31/21 01/31/21 01/31/21 Unknown Unknown Unknown WBC RBC Hgb Hct MCV MCH MCHC RDW Plt Count MPV Immature Gran % (Auto) Neut % (Auto) Lymph % (Auto) [place] % (Auto) Eos % (Auto) Baso % (Auto) Lymph # (Auto) [place] # (Auto) Eos # (Auto) Baso # (Auto) Abs Immat Gran (auto) Absolute Neuts (auto) Absolute Nucleated RBC Nucleated RBC % (auto) Sodium Potassium Chloride Carbon Dioxide Anion Gap BUN Creatinine Estim Creat Clear Calc Estimated GFR POC Glucose Random Glucose Calcium Phosphorus Magnesium Total Bilirubin Direct Bilirubin AST ALT Alkaline Phosphatase Total Protein Albumin Lipase Urine Color YELLOW Urine Appearance CLEAR Urine pH 6.0 Ur Specific [place] 1.015 Urine Protein NEG Urine Glucose (UA) NEG Urine Ketones NEG Urine Blood NEG Urine Nitrite NEG Ur Leukocyte Esterase NEG Urine Test NEGATIVE Salicylates Urine Opiates Screen Not Detected Urine Fentanyl Screen Not Detected Acetaminophen Ur Barbiturates Screen Not Detected Ur Phencyclidine Scrn Not Detected Ur Amphetamines Screen Not Detected U Benzodiazepines Scrn Not Detected Urine Cocaine Screen POSITIVE H U Marijuana (THC) Screen POSITIVE H Ethyl Alcohol COVID-19 (DYLAN) COVID-19 Clin Com Quality Stroke Does the patient have a stroke diagnosis?: No VTE Prior VTE?: No VTE Risk Level:: Medical - moderate - high VTE Device Contraindication: N/A - Device Ordered VTE Drug Contraindication: N/A - Med Ordered
[2021-01-31] MEDS: Potassium Chloride Packet 20 MEQ PACKET 40 MEQ PO (16:02)
[2021-01-31 17:26] LABS: Anion Gap 14 (12-20); Carbon Dioxide 20 mmol/L (22-29); Chloride 109 mmol/L (96-108); Potassium 3.9 mmol/L (3.3-5.1); Sodium 139 mmol/L (135-145)
--- NOTE | 2021-01-31 17:43 | PC.NURSE ---
Addendum entered by Светлана Yuen RN 01/31/21 18:43: pt refused 1800 EKG, aware Addendum entered by Светлана Yuen RN 01/31/21 18:12: pt beginning to get agitated and aggressive. notified, 1mg of IVP ativan given. Pt attempting to get out of bed, yelling that she wants her phone and clothes. Informed pt several times that phone and all her belongings are locked up in security since she was admitted with an overdose. pt continually asking for belongings. will continue to try and reorient pt Addendum entered by Светлана Yuen RN 01/31/21 17:52: [facility] called for an update, is pt's bradly. Ok to give update. Update also given to Muriel abdullahi's mother who pt is currently living with. Phone numbers are: Km- [phone]. Kcfemma-[phone]. Original Note: 0720 poison control called and recommended serial EKGs q2-4 hrs, labs q4-6hrs. Tigertext send to . 024, pt has seizure lasting about 40 seconds- 2mg IVP ativan given. Postictal could only state name. A little later pt became A&O. VSS. Pt began hallucanating in afternoon, reoriented as needed. ST on tele, LS clear, satting well on RA. Pt unable to void on bedpan, staight cathed per MD for 700ml of yellow urine. Pt remains NPO besides medication. Pt repos self, able to make needs known.
[2021-01-31] MEDS: LORazepam 2 MG/ML VIAL 1 MG IVPUSH (18:07)
[2021-02-01] VITALS (19 sets, daily range): BP systolic 83–146; BP diastolic 54–109; PULSE 71–126; RESP 18–28; TEMP 35.9–36.3; O2SAT 93–100; BMI 46.3
--- NOTE | 2021-02-01 01:00 | P.EN_ITS ---
Event Note Date of Service: 02/01/21 Event Note: Agitation: Patient was agitated overnight. Placed on soft restra ints. Psychiatry consulted. Recall the patient's family to update-did not car pick up driver the phone call. Paranoia/agitation: Around 4:00 a.m. patient become very agitated; as per the RN patient was wandering on the hallways naked; and pushed 1 of the nurses; patient was not listening to the reasoning; appears to be hallucinating saying that 'do not throw acid on my face . I went in to talk to the patient for [id number] evaluation; patient is very paranoid, does not engage in interview. Very paranoid. So patient was placed on four-point restraints for safety. One on 1 observation at bedside. Fall precautions maintained. Also given 2 mg Ativan IM. Consulted Psychiatry for further recommendations.
--- NOTE | 2021-02-01 01:40 | PC.NURSE ---
Assumed care at 1900; patient alert, oriented, but noncompliant with many aspects of care, refuses personal care often, refuses blood pressures and oxygen saturation monitoring at times, refuses to allow bladder scan at times. Patient was refusing to speak when asked questions for assessments often. patient initially with a report of chest discomfort she refused to describe further, PA aware, no further workup at this time. Patient later denying pain. Patient unable to void except for one episode of incontinence, and bladder scanned for 245 ccs around 23:45, continuing to monitor. Sinus tachycardia on telemetry with prolonged QTc, was 495 ms, and PA aware. Patient with coarse lung sounds throughout right lung miller to auscultation, loose occoasional nonproductive cough, PA aware. Patient was transferred to [facility] with report given to RN there, and when patient was informed she was to be transferred upstairs, became very restless and exit seeking, barely redirectable, was consoled, and was brought upstairs. PA aware.
[2021-02-01] MEDS: LORazepam 2 MG/ML VIAL IM ×3 (04:25→08:29)
--- NOTE | 2021-02-01 04:41 | MHC.PIE ---
Addendum entered by Lavon Duarte RN 02/01/21 08:43: Patient continues to be agitated - at approx 0745, poison control called for an update for patient. Poison control recommended giving the patient more ativan. Dr Chen made aware of poison control reccomendation. Addendum entered by Lavon Duarte RN 02/01/21 07:09: Patient increased agitation again - yelling, pulling at restraints, mumbling, saying inappropriate things - Dr Paige made aware - ordered another 2mg IM ativan - given at 0710. sitter remains at bedside, restraints remain on the patient. Original Note: Assumed care at approx 0330 - CODE ASSIST called overhead at approx 0355 r/t patient paranoid, agitated, jumped out of bed, took off hospital ran out into hallway naked, into an empty patient room bathroom - hiding in shower. Patient telling staff they are trying to throw acid on her. While attempting to get patient hospital gown on, patient became more agitated, pushed this RN into bathroom wall and ran into hallway to entrance of patient room - patient corralled with multiple staff members into her room - patient trying to hit / kick staff and not making sense - patient physically restrained and assisted into bed - gowned, and 4 point restraints applied at 4am. During restraint application, IV came out. Left hand dressed. Dr Jackson made aware - came to bedside after incident - ordered 2 mg IM ativan - given at 4:25am. Sitter changed and remains at bedside for SI / patient safety. 4 point restraints remain on patient - patient continuing to pull on arms. Patient given emotional comfort / support and educated about restraints. Patient slightly calmer, but crying, reports hearing hallucinations, intermit thrashing in bed - and anytime sitter and this RN come near to assess restraints, patient becomes agitated again.
--- NOTE | 2021-02-01 09:17 | HO.PM.IMPN ---
Subjective Subjective Date of Service: 02/01/21 Interval History: Seen in f/u for intentional drug overdose, psychotic behavior, with extreme agiatation and violent tendency and required sedations with ativan but doesn't seem to be having signficant effect, had 4 point restraint and continue to be very agitated, hallucinating, combating, has no IV acces, spoke to ICU attnding to be transfer down to ICU for better control and quite possible intubation for better sedation. Review of Systems Review of Systems: Yes Unobtainable due to mental status Physical Exam Vital Signs: Vital Signs: Last Vital Signs Temp 97.2 F 02/01/21 01:00 Pulse 109 H 02/01/21 02:15 Resp 28 H 02/01/21 04:00 BP 141/73 H 02/01/21 02:15 Pulse Ox 95 02/01/21 02:15 Body Mass Index 46.3 Gen: Extremily agitated thrashing all over the place She is alert, diaphoretic, hallucinating, No respiratory difficulty, moves all extremities, due to constant movement, thrashing, not able to auscultate and not able to engage in conversation Objective Data Active Medications Sodium Chloride (Ns) 1,000 mls @ 80 mls/hr IVCONT .[id number] LONG Last Infusion: 02/01/21 08:37 Dose: 0 mls/hr Documented by: MARGARETTE Labs CBC & Chem 7: 01/31/21 04:06 01/31/21 16:55 Labs: Laboratory Results - last 24 hr 01/31/21 01/31/21 01/31/21 08:50 15:10 16:55 Anion Gap 15 14 Estim Creat Clear Calc 116.8 Estimated GFR > 60 POC Glucose 110 Random Glucose 103 Calcium 8.6 D Phosphorus 3.6 Magnesium 2.0 2.0 Assessment and Plan (1) Overdose: Status: Acute (2) Psychosis: Status: Acute Assessment and Plan: 25 year old F with depersonalization d/o, Psychosis, PTSD here with reported intentional Welbutrin overdose, assocated extreme agitation, psychosis and difficult to sedate. Plan: To be transfer to ICU for better sedation, may possibly need mechanical ventilation for this. Unable to give ketamin on med floor without medical transcription radiology, therefore ativan given until arrives in ICU. Discussed with Dr. Scruggs Quality Stroke Does the patient have a stroke diagnosis?: No VTE Prior VTE?: No VTE Risk Level:: Medical - moderate - high VTE Device Contraindication: N/A - Device Ordered VTE Drug Contraindication: N/A - Med Ordered
[2021-02-01] MEDS: dexmedeTOMIDidine HCL/NS 400 MCG/100 ML INFUS..BTL 30.65 MCG IVCONT ×2 (09:45→23:16)
[2021-02-01] MEDS: Ketamine HCl 500 MG/5 ML VIAL 150 MG IM (09:58)
[2021-02-01 10:54] LABS: Glucose, Whole Blood 120 mg/dL (60-115)
[2021-02-01] MEDS: dexmedeTOMIDidine HCL/NS 400 MCG/100 ML INFUS..BTL 24.52 MCG IVCONT ×2 (11:26→20:48)
--- NOTE | 2021-02-01 12:35 | PM.CCPN ---
Subjective Subjective Date of Service: 02/01/21 Interval History: Ms. Riggins was transferred back to the ICU this morning after becoming behaviorally uncontrollable after transfer to [facility] [place] [place] last night. The patient is a 25-year-old woman with history of anxiety, depression, prior suicidal attempts by pill ingestion, history of cocaine use.? She was brought into the ED early yesterday morning by EMS and police after intentionally taking 34 pills of Wellbutrin XR 300 mg in a suicide attempt.? Was feeling depressed lately for unclear reasons.? The patient denied coingestion of any other medication, but admitted to smoking weed. Vital signs in the ED were notable for tachycardia and hypertension.? She was breathing easy with sat of 99% on room air.? She was normothermic.? General physical exam was only remarkable for morbid obesity. Laboratory studies in the ED were notable only for a mild leukocytosis and a serum bicarb of 19.? BUN and creatinine were 13/0.7.? Salicylate acetaminophen and ethyl alcohol levels were all negative.? Urine tox screen was positive for cocaine and marijuana. In consultation with poison Control, the patient was given activated charcoal, and GoLYTELY.? Her heart rate came down slowly.? The patient was admitted to the ICU.? She had a seizure that morning at about 7am that self-terminated after about 30 secs.? She was given 2 mg of Ativan.? Seizures did not recurred.? Mental status was altered for much of the day, including hallucinations and speech that made no sense; she was otherwise fully alert and calm.? Was breathing easy with sat of 96-99% on room air thruout the day.? F/U labs and EKGs thru the day were unremarkable.? She was triaged to [facility] [place] [place] late last night She became agitated overnight.? Placed in soft restraints.? Around 4am became very agitated, wandering the hallways naked.? Pushed one of the nurses. ?Appeared to be hallucinating, was very paranoid.? She was given 2 mg Ativan IM.? Not much help. This morning, became extremely agitated and combative, required 4 point restraints and security.? Lost her IV access.? Was given IM Ativan and transferred back down to the ICU for behavioral control.? She was given ketamine 150 mg IM, following which IV access was achieved and she was bolused with Precedex, then started on an infusion. Now calm on Precedex at 0.8 ug, but no oriented or appropriately interactive.? Wouldn?t be able to take any pills.? Breathing easy w clear airway, Sat 99%.? Heart rate 80, blood pressure 105/68.? Normothermic.? Chest is clear.? Neuro grossly intact. LABORATORY DATA:? As below. IMPRESSION:? 25-year-old woman with history of major depression and previous suicide attempts, admitted after deliberate Wellbutrin overdose. Now w psychotic behavior, with extreme agiatation and combativeness, requiring sedation with Precedex.? The patient takes Abilify at home, but she is unable to take anything orally at this time. We need to give her an IV or oral agent for behavior control. ?Will d/w pharmacy and psych.? Awaiting psych consult. Critical care time:? 45 min.? 11496 Critical Care Time (minutes): 45 Physical Exam Vital Signs: Vital Signs: Last Vital Signs Temp 97.2 F 02/01/21 01:00 Pulse 109 H 02/01/21 02:15 Resp 28 H 02/01/21 04:00 BP 141/73 H 02/01/21 02:15 Pulse Ox 95 02/01/21 02:15 Body Mass Index 46.3 Objective Data Labs CBC & Chem 7: 01/31/21 04:06 01/31/21 16:55 Labs: Laboratory Results - last 24 hr 01/31/21 01/31/21 02/01/21 15:10 16:55 10:50 Sodium 139 Potassium 3.9 Chloride 109 H Carbon Dioxide 20 L Anion Gap 14 POC Glucose 110 120 H Magnesium 2.0 Quality Stroke Does the patient have a stroke diagnosis?: No VTE Prior VTE?: No VTE Risk Level:: Medical - moderate - high VTE Device Contraindication: N/A - Device Ordered VTE Drug Contraindication: N/A - Med Ordered Critical Care Time Critical Care Time (minutes): 60
[2021-02-01] MEDS: risperiDONE Oral Sol 1 MG/ML SOLUTION 2 MG PO (13:13)
[2021-02-01] MEDS: Valproic Acid (as Sodium Salt) 1,000 MG in Dextrose 5 % 50 ML 60 MG IV (14:28)
[2021-02-01] MEDS: Lactated Ringers 1,000 ML 80 ML IVCONT (15:23)
[2021-02-01] MEDS: dexmedeTOMIDidine HCL/NS 400 MCG/100 ML INFUS..BTL 18.39 MCG IVCONT (15:50)
--- NOTE | 2021-02-01 19:24 | PC.NURSE ---
LATE ENTRY: AT START OF SHIFT PT IN 4 POINT RESTRAINTS, SCREAMING, YELLING, HALLUCINATING, PULLING ON RESTRAINTS, TRYING TO LEVITATE OFF BED. DOES NOT FOLLOW COMMANDS, UNABLE TO REDIRECT. DIAPHORETIC, RR 26-32. MD CALLED BEDSIDE. ATIVAN 2MG IM ADMINISTERED PER MD. MD CALLED SURVEILLANCE SUPERVISOR AND REQUESTED TRANSFER TO ICU. REPORT TO PLANT CULTURE MANAGER GIVEN. TRANSFERRED BY SECURITY, SEED LABORATORY TECHNICIAN AND SITTER.
[2021-02-02] VITALS (24 sets, daily range): BP systolic 84–165; BP diastolic 52–82; PULSE 72–103; RESP 12–25; TEMP 36.2–37.3; O2SAT 92–100; BMI 45.0
--- NOTE | 2021-02-02 01:38 | PC.NURSE ---
Assumed care of pt at 1900. Pt sedated on Precedex drip at 1mcg/kg/hr. Is calm at rest but is resistive to any care or interventions. Tries to pull out IV's or take O2 off. Wrist restraints on but right arm released at 0000. Left arm restraint remains on. 1:1 sitter at bedside. Pt does not answer questions appropriately and does not follow commands. Oral mucosa is dry and lips are dry and crusted. Attempted to clean mouth and put lip moisturizer on but pt resistant. States we are putting acid on her face. Was able to put lip moisturizer on but not able to do oral care. Pt calmed a bit after lip moisturizer was on as if she realized it was good for her and not acid. Was moaning out loud. Has not voided. Has purewick on but no urine. Was incontinent of urine prior to 1900. Navid Angel aware of no void and believes it is best to not straight cath pt at this time to avoid agitating her anymore. She was bladder scanned for 680 ml at 0030. Will give her more time void on her own.
[2021-02-02] MEDS: dexmedeTOMIDidine HCL/NS 400 MCG/100 ML INFUS..BTL 30.65 MCG IVCONT (02:14)
[2021-02-02] MEDS: Lactated Ringers 1,000 ML 80 ML IVCONT (03:21)
[2021-02-02 05:30] LABS: Hematocrit 38.5 % (37-47); Hemoglobin 12.8 g/dl (12.0-16.0); Mean Corpuscular HGB Conc 33.2 g/dl (31.0-35.0); Mean Corpuscular Hemoglobin 32.2 pg (27.0-33.0); Platelet Count 245 X10*3/uL (160-400); Red Blood Count 3.97 X10*6/uL (4.20-5.50); Red Cell Distribution Width 13.2 % (11.0-16.0); White Blood Count 15.9 X10*3/uL (4.8-10.8)
[2021-02-02 05:50] LABS: Anion Gap 13 (12-20); Blood Urea Nitrogen 10 mg/dL (9-16); Calcium 8.8 mg/dL (8.4-10.2); Carbon Dioxide 22 mmol/L (22-29); Chloride 110 mmol/L (96-108); Creatinine Clr Calc Pharmacy 155.6; Estimated Glomerular Filt Rate > 60; Glucose Random 124 mg/dL (60-115); Magnesium 2.2 mg/dL (1.6-2.6); Phosphorus 3.3 mg/dL (2.7-4.5); Potassium 4.1 mmol/L (3.3-5.1); Sodium 141 mmol/L (135-145)
--- NOTE | 2021-02-02 06:31 | PC.NURSE ---
Released second wrist restraint at 0200. Pt was not pulling on any wires, bp or IV. 1:1 sitter with pt. Pt having hallucinations of acid being poured on her and of being stuck in a hole. Pt was asked to try to void and used a bedpan with difficulty and only voided 50 ml. Asking for water and few ice chips given. No difficulty swallowing. Pt remains on precedex drip and has been calm at rest or when no nsg interventions done but at 0615 she jumped over the siderail and out of bed. Bed alarm set off and several nurses responded in addition to the 1:1 sitter at bedside and pt lowered herself to the floor and then was assisted BTB. No injury to pt. She's weepy and saying she wants to go home.
[2021-02-02] MEDS: dexmedeTOMIDidine HCL/NS 400 MCG/100 ML INFUS..BTL 24.52 MCG IVCONT (06:41)
[2021-02-02] MEDS: OLANZapine 10 MG VIAL IM (07:16)
--- NOTE | 2021-02-02 10:20 | PM.CCPN ---
Subjective Subjective Date of Service: 02/02/21 Interval History: Ms. Riggins was transferred back to the ICU yesterday morning after becoming behaviorally uncontrollable after transfer to [facility] [place] the previous night. The patient is a 25-year-old woman with history of anxiety, depression, prior suicidal attempts by pill ingestion, history of cocaine use.? She was brought into the ED early on Jan 31 by EMS and police after intentionally taking 34 pills of Wellbutrin XR 300 mg in a suicide attempt.? Was feeling depressed lately for unclear reasons.? The patient denied coingestion of any other medication, but admitted to smoking weed. Vital signs in the ED were notable for tachycardia and hypertension.? She was breathing easy with sat of 99% on room air.? She was normothermic.? General physical exam was only remarkable for morbid obesity. Lab studies in the ED were notable only for a mild leukocytosis and a serum bicarb of 19.? BUN and creatinine were 13/0.7.? Salicylate, acetaminophen, and ethyl alcohol levels were all negative.? Urine tox screen was positive for cocaine and marijuana. In consultation with poison Control, the patient was given activated charcoal, and GoLYTELY.? Her heart rate came down slowly.? The patient was admitted to the ICU.? She had one seizure that morning that self-terminated.? She was given 2 mg of Ativan.? Seizures did not recur.? Mental status was altered for much of the day, including hallucinations and speech that made no sense; she was otherwise fully alert and calm.? Was breathing easy with sat of 96-99% on room air thruout the day.? F/U labs and EKGs thru the day were unremarkable.? She was triaged to [facility] late that night. She became agitated overnight.? Placed in soft restraints.? Around 4am became very agitated, wandering the hallways naked.? Pushed one of the nurses.? Appeared to be hallucinating, was very paranoid.? She was given 2 mg Ativan IM, without much effect. That morning, became extremely agitated and combative, required 4 point restraints and security.? Lost her IV access.? Was given IM Ativan and transferred back down to the ICU for behavior control.? She was given ketamine 150 mg IM, following which IV access was achieved and she started on Precedex, with excellent sedation. Yesterday she remained psychotic and paranoid when the Precedex was tapered.? In consultation with Meggan Champagne, we gave her 10mg Zyprexa IM this morning and within an hour she was much better.? The Precedex was tapered and then stopped after about 2 hrs.? She?s currently sleepy.? Breathing easy w Sat 94% on room air.? Looks well, thoroughly nontoxic. ?Easily arousable, responds to questions with a few words.? Breathing easy with clear inspiratory tracheal sounds, but exp rhonchorous tracheal sounds that are transmitted to the lungs.? Inspiratory breath sounds are largely clear.? Exp phase is normal.? Normal heart tones.? Abdomen benign.? Maybe trace pretibial edema.? Neuro grossly intact. LABORATORY DATA:? As below.? Notably white count still elevated. IMPRESSION: 1. Major depression and previous suicide attempts 2. Deliberate Wellbutrin overdose. 3. Acute psychosis.? We?ll hold the Abilify and continue with Zyprexa 10 mg bid, plus up to two 10 mg prn doses/day.? Psych to do formal consult. 4. Leukocytosis.? Undetermined etiology.? She?s definitely not septic.? Quick SOFA score is 0.? Screening u/a was negative.? Sat is lower than I?d expect, it?s possible that she aspirated.? Checking a CXR.? No abx indicated at this time.? No indication for blood cultures at this time. ADDENDUM:? CXR is suggestive of a Left perihilar pneumonia.? I?ve written her for a five day course of (oral) Augmentin.? If she can?t take the pill or liquid, we?ll have to write her for IV med. Time:? 24584 Critical Care Time (minutes): 0 Physical Exam Vital Signs: Vital Signs: Last Vital Signs Temp 98.1 F 02/02/21 08:00 Pulse 84 02/02/21 10:00 Resp 24 H 02/02/21 10:00 BP 97/66 02/02/21 10:00 Pulse Ox 94 02/02/21 10:00 Body Mass Index 45.0 Objective Data Labs CBC & Chem 7: 02/02/21 05:19 02/02/21 05:19 Labs: Laboratory Results - last 24 hr 02/01/21 02/02/21 02/02/21 10:50 05:19 05:19 WBC 15.9 H RBC 3.97 L Hgb 12.8 Hct 38.5 MCV 97.0 MCH 32.2 MCHC 33.2 RDW 13.2 Plt Count 245 D MPV 10.0 Absolute Nucleated RBC 0.000 Nucleated RBC % (auto) 0.0 Sodium 141 Potassium 4.1 Chloride 110 H Carbon Dioxide 22 Anion Gap 13 BUN 10 Creatinine 0.72 Estim Creat Clear Calc 155.6 Estimated GFR > 60 POC Glucose 120 H Random Glucose 124 H Calcium 8.8 Phosphorus 3.3 Magnesium 2.2 Quality Stroke Does the patient have a stroke diagnosis?: No VTE Prior VTE?: No VTE Risk Level:: Medical - moderate - high VTE Device Contraindication: N/A - Device Ordered VTE Drug Contraindication: N/A - Med Ordered
[2021-02-02] MEDS: Valproic Acid (as Sodium Salt) 1,000 MG in Dextrose 5 % 50 ML 60 MG IV (11:06)
[2021-02-02] MEDS: OLANZapine ODT 10 MG TAB.RAPDIS 5 MG TRANSLINGU ×2 (13:19→22:41)
--- NOTE | 2021-02-02 14:24 | MHC.CM.PN ---
Attempted to meet with patient in regards to discharge planning. Patient is currently in restraints. Attempted to speak with patient's mother, Brandy via telephone at [phone]. Case Management assessment completed using medical record. Patient is from home with sig other. Patient is an intentional drug overdose with Wellbutrin XL. Crisis eval will be needed when patient is medically stable. Continue to monitor for d/c needs.
--- NOTE | 2021-02-02 17:06 | PC.NURSE ---
Patient remains in ICU for monitoring of behaviors s/p OD. NSR on tele, occasional ST with activity. Afebrile, with stable BPs. SpO2 on RA 97% and better. (+) rhonchi throughout. PCXR done. Probable LLL pneumonia. Liquid Augmentin started PO. IV LR rate decreased from 80 to 40ml/hr. Psych meds adjusted today. 10mg IM Zyprexa administered this AM at 0700. IV Valproic Acid 1g given at noon. PRN 5mg Zyprexa Zydis given for agitation and paranoia at 13:20 with fair affect after over an hour. Patient's fiance also came in to visit which did seem to help patient with anxiety. She has been able to stand at the bedside to pivot transfer into chair and BSC to void with minimal standby assistance. Resting in bed with eyes closed at this time. Poison control updated who has since signed off on the case.
[2021-02-02] MEDS: Lactated Ringers 1,000 ML 40 ML IVCONT (20:49)
[2021-02-02] MEDS: OLANZapine ODT 10 MG TAB.RAPDIS TRANSLINGU (20:49)
[2021-02-02] MEDS: Valproic Acid (as Sodium Salt) 500 MG in Dextrose 5 % 50 ML 55 MG IV (21:38)
[2021-02-03] VITALS (13 sets, daily range): BP systolic 94–123; BP diastolic 52–79; PULSE 83–108; RESP 14–28; TEMP 36.5–37.6; O2SAT 93–99; BMI 44.2
--- NOTE | 2021-02-03 04:50 | PC.NURSE ---
Pt restless for a good part of the night. Kept asking about when she can go home and what time can she leave. Wanted her cell phone. No threat to self or others. 1:1 sitter at bedside. Answers questions appropriately. Is vague as to what happened and why she is here. Received scheduled dose of Zyprexa 10 mg po at HS and a prn dose of 5 mg po. Finally fell asleep around 0200. Per provider Navid Daniels, pt not to be awakened for vital signs. No Bp taken at 0300, 0400 or 0500. Monitor shows NSR, 90's, no ectopy. Non productive congested cough noted. Pt encouraged to C&DB each hour when awake. Followed commands to do this.
[2021-02-03] MEDS: Valproic Acid (as Sodium Salt) 500 MG in Dextrose 5 % 50 ML 55 MG IV (10:02)
[2021-02-03] MEDS: OLANZapine ODT 10 MG TAB.RAPDIS TRANSLINGU (10:04)
--- NOTE | 2021-02-03 11:12 | MHC.CM.PN ---
Received return telephone call from patient's mother, Brandy. Brandy does not believe patient has a PCP. Clinical update provided to Brandy. Patient will need to have Crisis eval when medically stable d/t SA. Continue to monitor for d/c needs.
--- NOTE | 2021-02-03 12:52 | P.PNCC_ITS ---
Subjective Subjective Date of Service: 02/03/21 Interval History: Ms. Riggins was transferred back to the ICU Feb 01 morning after becoming behaviorally uncontrollable after transfer to [facility] the previous night. The patient is a 25-year-old woman with history of anxiety, depression, prior suicidal attempts by pill ingestion, history of cocaine use.? She was brought into the ED early on Jan 31 by EMS and police after intentionally taking 34 pills of Wellbutrin XR 300 mg in a suicide attempt.? Was feeling depressed lately for unclear reasons.? The patient denied coingestion of any other medication, but admitted to smoking weed. Vital signs in the ED were notable for tachycardia and hypertension.? She was breathing easy with sat of 99% on room air.? She was normothermic.? General physical exam was only remarkable for morbid obesity. Lab studies in the ED were notable only for a mild leukocytosis and a serum bicarb of 19.? BUN and creatinine were 13/0.7.? Salicylate, acetaminophen, and ethyl alcohol levels were all negative.? Urine tox screen was positive for cocaine and marijuana. In consultation with poison Control, the patient was given activated charcoal, and GoLYTELY.? Her heart rate came down slowly.? The patient was admitted to the ICU.? She had one seizure that morning that self-terminated.? She was given 2 mg of Ativan.? Seizures did not recur.? Mental status was altered for much of the day, including hallucinations and speech that made no sense; she was otherwise fully alert and calm.? Was breathing easy with sat of 96-99% on room air thruout the day.? F/U labs and EKGs thru the day were unremarkable.? She was triaged to [facility] late that night. She became agitated over that night.? Placed in soft restraints.? Around 4am the following morning, 02/01, she became very agitated, wandering the hallways naked.? Pushed one of the nurses.? Appeared to be hallucinating, was very paranoid.? She was given 2 mg Ativan IM, without much effect. Later that morning, became extremely agitated and combative, required 4 point restraints and security.? Lost her IV access.? Was given IM Ativan and transferred back down to the ICU for behavior control.? She was given ketamine 150 mg IM, following which IV access was achieved and she started on Precedex, with excellent sedation. She remained psychotic and paranoid when the Precedex was tapered.? In consultation with Meggan Champagne, we gave her 10mg Zyprexa IM yesterday morning and within an hour she was much better.? The Precedex was rapidly tapered off.? She did fairly well throughout the day yesterday, with improving lucidity.? We put her on Zyprexa 10mg bid.? We also put her on Augmentin for a possible aspiration pneumonia (bec of leukocytosis, room air Sat of94%, and CXR suggestive of a left sided infiltrate).? She was given one prn dose of Zyprexa 5mg at about 11pm last night, but otherwise she?s doing very well. At noon today, she?s out of bed sitting in a chair and she?s calm and ?behaviorally? normal, although her expectations (wants to go home) and thinking processes aren?t appropriate.? Breathing easy with Sat 97-99% on room air.? She?s been afebrile her entire hospital stay.? Looks well, thoroughly nontoxic.? Responds to questions with a few words.? Chest is clear with normal exp phase. LABORATORY DATA:? No labs today. IMPRESSION: 1. Major depression and previous suicide attempts 2. Deliberate Wellbutrin overdose. 3. Acute psychosis.? Doing very well on Zyprexa 10 mg bid.? She?s also written for 5mg q6hr prn, up to four 5 mg prn doses/day.? Psych is following. 4. Possible left sided pneumonia, as noted above.? Sat is much improved after starting the Augmentin. ?Today is Day# 2, and she should complete a five day course.? She should have a CBC recheck tomorrow morning.? (That?s the only labs that she needs.) Discussed at length with Meggan Champagne.? From a medical point of view, the patient no longer needs to be in the hospital.? Under ordinary circumstances, I would discharge her home to finish her course of oral antibiotics, and she would follow up with her physician in the next 5-7 days.? However, from a psychiatric point of view, she is not stable to leave a supervised setting.? I recommended admission to .? She would have medical follow-up there. I will talk with the hospitalists to figure out how to get her discharged to with appropriate medical follow-up. Time:? 85100 Critical Care Time (minutes): 0 Physical Exam Vital Signs: Vital Signs: Last Vital Signs Temp 97.7 F 02/03/21 08:00 Pulse 95 02/03/21 12:00 Resp 18 02/03/21 12:00 BP 102/60 02/03/21 12:00 Pulse Ox 95 02/03/21 12:00 Body Mass Index 44.2 Objective Data Labs CBC & Chem 7: 02/02/21 05:19 02/02/21 05:19 Quality Stroke Does the patient have a stroke diagnosis?: No VTE Prior VTE?: No VTE Risk Level:: Medical - moderate - high VTE Device Contraindication: N/A - Device Ordered VTE Drug Contraindication: N/A - Med Ordered
--- NOTE | 2021-02-03 14:36 | MHC.CARE ---
Pt was assessed by the CARE Team and plan for psychiatric admission on [facility].
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
== END 2021-02-03 17:28 | DRG 917 ==
LOC: HO.ED 03:51 → HO.EDOVER 05:09 → HO.ICU 05:36 → HO.IMC 23:44 → HO.ICU 02-01 08:58
PROVIDERS: Admitting Provider Physician Assistant Medical; Emergency Provider Emergency Medicine; Visit Provider Anesthesiology
DX: T43.292A Poisoning by other antidepressants, intentional self-harm, initial encounter (principal); J18.9 Pneumonia, unspecified organism; R45.851 Suicidal ideations; F32.3 Major depressive disorder, single episode, severe with psychotic features; F43.10 Post-traumatic stress disorder, unspecified; I10 Essential (primary) hypertension; Z91.5 Personal history of self-harm; D72.829 Elevated white blood cell count, unspecified; R00.0 Tachycardia, unspecified; F17.210 Nicotine dependence, cigarettes, uncomplicated; Z71.6 Tobacco abuse counseling; Z20.822 Contact with and (suspected) exposure to COVID-19; Z79.899 Other long term (current) drug therapy
CPT/HCPCS: 36415; 71045; 80048; 80051; 80076; 80143; 80179; 80307; 81003; 81025; 82077; 82947; 83690; 83735; 84100; 85025; 85027; 87635; 93005; 96361; 96374; 99285; 99291; J2060; J2405

== ENCOUNTER 2021-02-03 17:28 | Inpatient (IN) | payer MEDICARE, SELFPAY ==
--- NOTE | 2021-02-03 17:42 | HE.PHANOTE ---
Upon transfer from ICU to M3 Dr. Scruggs want Augmentin and Olanzapine to be continued. Dr. Scruggs informed [facility] in the morning to add medications if they were not automatically transfer. Medications were added to the patient profile by me once patient was admitted to M3. Ariella Barriga, IsatuD
[2021-02-03 20:28] VITALS: PULSE 77; RESP 16; TEMP 36.5; O2SAT 96
[2021-02-03] MEDS: OLANZapine ODT 10 MG TAB.RAPDIS TRANSLINGU (22:32)
[2021-02-03 22:36] VITALS: BP 129/71; PULSE 77; RESP 18
[2021-02-04 06:00] VITALS: BP 178/92; PULSE 78; RESP 18; TEMP 36.2; O2SAT 98
[2021-02-04 07:01] LABS: MANUAL DIFF FLAG NO
[2021-02-04 07:06] LABS: Basophils Percent Auto 0.3 % (0-2); Eosinophils Absolute Auto 0.3 X10*3/uL (0.0-0.4); Eosinophils Percent Auto 3.2 % (0-4); Hematocrit 37.4 % (37-47); Hemoglobin 12.4 g/dl (12.0-16.0); Imm Gran Abs Auto 0.03 X10*3/uL (0.00-0.03); Imm Gran Pct Auto 0.3 % (0.0-0.4); Lymphocytes Percent Auto 45.8 % (20-40); Mean Corpuscular HGB Conc 33.2 g/dl (31.0-35.0); Mean Corpuscular Hemoglobin 32.2 pg (27.0-33.0); Mean Corpuscular Volume 97.1 fL (80-98); Mean Platelet Volume 10.1 fL (9.4-12.3); Monocytes Absolute Auto 0.8 X10*3/uL (0.1-1.2); Monocytes Percent Auto 8.9 % (2-11); Neutrophils Absolute Auto 3.6 X10*3/uL (2.0-8.3); Neutrophils Percent Auto 41.5 % (45-73); Platelet Count 262 X10*3/uL (160-400); Red Blood Count 3.85 X10*6/uL (4.20-5.50); Red Cell Distribution Width 13.2 % (11.0-16.0); White Blood Count 8.7 X10*3/uL (4.8-10.8)
[2021-02-04 07:22] LABS: Cholesterol 176 mg/dL; HDL Cholesterol 32 mg/dL; LDL Cholesterol Calculated 118 mg/dl; Triglycerides 133 mg/dL
[2021-02-04 07:42] LABS: Thyroid Stimulating Hormone 1.21 uIU/mL (0.32-4.0)
[2021-02-04 08:56] LABS: Folate 4.9 ng/mL (> or = 4.0); Vitamin B12 513 pg/mL (200-900)
[2021-02-04 09:17] LABS: Estimated Average Glucose 91 mg/dL; Hemoglobin A1c % 4.8 %
[2021-02-04] MEDS: OLANZapine ODT 10 MG TAB.RAPDIS TRANSLINGU ×2 (09:39→22:14)
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
[2021-02-04 18:00] VITALS: BP 118/78; PULSE 68; RESP 18; TEMP 36.6; O2SAT 99
[2021-02-05 06:00] VITALS: BP 148/82; PULSE 80; RESP 18; TEMP 36.2; O2SAT 97
[2021-02-05] MEDS: OLANZapine ODT 10 MG TAB.RAPDIS TRANSLINGU ×2 (09:25→22:27)
--- NOTE | 2021-02-05 14:20 | P.PNPSI_ITS ---
Subjective Subjective Date of Service: 02/05/21 Reason For Visit: OD Interim History: pt requesting discharge, informed 3-day matures . states overdosing opened my eyes and made me want to change. she states she has been living with her boyfriend and her boyfriend's mother and grandmother. she states she has a therapist and psychiatrist at [facility]. she would like to re-engage with them for treatment. MD educates her about IOP/PHP level of care and strongly encourages her to consider such a program at discharge to provide her some structure for a time, some support, some more intense mental health treatment than just routine outpt care, and some time to develop coping skills. she was referred to speak with SW to develop a suitable discharge plan. per staff, signed 3-day notice. attended 1/3 groups.was delirious thursday, cleared up thursday. anxious/restless yesterday, asking for discharge. just taking zyprexa here for now. on amoxicillin for presumed aspiration pneumonia. Mental Status Exam Mental Status Exam Narrative: dressed in scrubs. forearm tattoos. adequately groomed. cooperative with interview, no PMA/PMR. speech nml rate, incr amount, nml tone, decr latency. thoughts linear and logical. pleading for discharge, a bit tearf ul. denies SI. no HI/AVH expressed. Diagnostics Vital Signs (24Hr): Vital Signs - 24 hr 02/04/21 18:00 02/05/21 06:00 Temperature 97.9 F 97.1 F Pulse Rate 68 80 Respiratory Rate 18 18 Blood Pressure 118/78 148/82 H Pulse Oximetry 99 97 Labs Results: 02/04/21 06:46 Labs: Laboratory Results - last 48 hr 02/04/21 02/04/21 02/04/21 06:46 06:46 06:46 WBC RBC Hgb Hct MCV MCH MCHC RDW Plt Count MPV Immature Gran % (Auto) Neut % (Auto) Lymph % (Auto) [place] % (Auto) Eos % (Auto) Baso % (Auto) Lymph # (Auto) [place] # (Auto) Eos # (Auto) Baso # (Auto) Abs Immat Gran (auto) Absolute Neuts (auto) Absolute Nucleated RBC Nucleated RBC % (auto) Estimat Average Glucose 91 Hemoglobin A1c % 4.8 Triglycerides 133 Cholesterol 176 LDL Cholesterol, Calc 118 HDL Cholesterol 32 Vitamin B12 513 Folate 4.9 TSH 1.21 02/04/21 06:46 WBC 8.7 RBC 3.85 L Hgb 12.4 Hct 37.4 MCV 97.1 MCH 32.2 MCHC 33.2 RDW 13.2 Plt Count 262 MPV 10.1 Immature Gran % (Auto) 0.3 Neut % (Auto) 41.5 L Lymph % (Auto) 45.8 H [place] % (Auto) 8.9 Eos % (Auto) 3.2 Baso % (Auto) 0.3 Lymph # (Auto) 4.0 [place] # (Auto) 0.8 Eos # (Auto) 0.3 Baso # (Auto) 0.0 Abs Immat Gran (auto) 0.03 Absolute Neuts (auto) 3.6 Absolute Nucleated RBC 0.000 Nucleated RBC % (auto) 0.0 Estimat Average Glucose Hemoglobin A1c % Triglycerides Cholesterol LDL Cholesterol, Calc HDL Cholesterol Vitamin B12 Folate TSH Medications Medications Current Medications Generic Name Dose Route Start Last Admin Trade Name Freq PRN Reason Stop Dose Admin Acetaminophen 650 mg 02/03/21 17:41 Acetaminophen 325 Mg Tablet PO Q6H PRN Headache/Pain Mild Scale (1-3) Al Hydroxide/Mg Hydroxide 30 ml 02/03/21 17:41 Magnesium Hydrox/Alum Hydrox 30 Ml Oral.Susp PO Q6H PRN Heartburn/Nausea Amoxicillin/Clavulanate Potassium 875 mg 02/03/21 23:00 02/05/21 11:35 Amoxicillin/Potassium Clav 2,000 Mg/50 Ml Bottle PO 02/06/21 23:01 875 mg Q12H LONG Administration Hydroxyzine HCl 50 mg 02/03/21 17:41 Hydroxyzine Hcl 25 Mg Tablet PO Q6H PRN Anxiety Magnesium Hydroxide 30 ml 02/03/21 17:41 Milk Of Magnesia 30 Ml Oral.Susp PO DAILY PRN Constipation Olanzapine 10 mg 02/03/21 21:00 02/05/21 09:25 Olanzapine Odt 10 Mg Tab.Rapdis TRANSLINGU 10 mg BID LONG Administration Olanzapine 5 mg 02/03/21 17:55 Olanzapine Odt 10 Mg Tab.Rapdis TRANSLINGU Q6H PRN AGITATION Protocol Trazodone HCl 50 mg 02/03/21 17:41 Trazodone Hcl 50 Mg Tablet PO BEDTIME PRN Insomnia Allergies Allergies Allergy/AdvReac Type Severity Reaction Status Date / Time cephalexin [From KEFLEX] Allergy Unknown HIVES Verified 02/01/21 06:30 clarithromycin [Prevpac] Allergy Unknown Unknown Verified 02/01/21 06:30 lansoprazole [Prevpac] Allergy Unknown Unknown Verified 02/01/21 06:30 omeprazole [Prilosec] Allergy Unknown Unknown Verified 02/01/21 06:30 Assessment & Plan Assessment & Plan (1) MDD (major depressive disorder), recurrent, severe, with psychosis: Status: Acute Code(s): F33.3 - Major depressive disorder, recurrent, severe with psychotic symptoms (2) Cocaine use disorder, mild, abuse: Status: Acute Code(s): F14.10 - Cocaine abuse, uncomplicated Assessment and Plan: Ms. Riggins is a 25 year-old woman with hx of trauma, depression, voices that appear to be related to trauma who was brought [place] [facility] after intentional suicide attempt via 34 tablets of wellbutrin. Pt was admitted medically initially, had witnessed seizure, given chaorcoal and Golyte. EKG unremarkable. Pt brought to ICU for behavioral control on precedex, tapered off without problem once pt under more behavioral control on olanzapine 10mg po BID. On unit, pt is oriented, does not recall episodes of agitation while in medical unit but does admit she had OD as suicide attempt. Pt appears to be minimizing severe symptoms of depression and suicide attempt. Mother concerned about her safety and thinks she is not fully forthcoming with OP psych providers. We discussed risks, benefits and alternative treatment options. Pt not open to medication changes at this time in part because she wants to be discharge, but compliant with Olanzapine which was started with intent to control agitation and confusion. PLAN 1. Admit to M3 2. Obtain collateral information 3. Aftercare planning 4. Continue Olanzapine for now. 5. Repeat CBC on 02/04 wnl- continue aumentin Greater than 50% of the session was spent on counseling and/or coordination of care Reason for contiued inpatient stay Substantial Risk for: harm to self, inability to function and rapid decompensation
[2021-02-05 18:00] VITALS: BP 115/62; PULSE 61; TEMP 36.2; O2SAT 98
[2021-02-06] MEDS: OLANZapine ODT 10 MG TAB.RAPDIS TRANSLINGU ×2 (09:18→22:43)
[2021-02-06 09:20] VITALS: BP 122/75; PULSE 72; RESP 16; TEMP 36.7; O2SAT 100
[2021-02-06] MEDS: Sertraline HCL 50 MG TABLET 150 MG PO (12:06)
--- NOTE | 2021-02-06 12:47 | P.PNPSI_ITS ---
Subjective Subjective Date of Service: 02/06/21 Reason For Visit: OD Interim History: pt continues to appear depressed, downward gaze, soft/mumbled voice, ambivalent in response to most questions or suggestions. states she just wants to go home. has a difficult time expressing why she feels supported by her boyfriend's mother and grandmother; she explains her mother told her that they want her to come home. she states she has not been in touch with them herself. she states she had been isolating from them before but now she will need to talk to them, which she frames as a positive development. topic of PHP/IOP revisited; she states she is willing to do a program. reports she was taking sertraline just up until her hospitalization. she agrees to restart it today. she reports having been taking 150 mg daily. no other complaints or requests. per staff, quiet, somewhat visible in the milieu. isolative on eves. anxiety and depression low, per pt report to staff toxicologist. attended 3/3 groups. denies SI/HI. Mental Status Exam Mental Status Exam Narrative: dressed in scrubs. forearm tattoos. adequately groomed. cooperative with interview, reduced eye contact, no PMA/PMR. speech nml rate, amount. decr loudness, flattened tone. nml latency. thoughts linear and log ical, no delusions or paranoia evident. asking for for discharge. affect constricted, non-labile. no SI/HI/AVH expressed. Diagnostics Vital Signs (24Hr): Vital Signs - 24 hr 02/05/21 18:00 02/06/21 09:20 Temperature 97.1 F 98.0 F Pulse Rate 61 72 Respiratory Rate 16 Blood Pressure 115/62 122/75 Pulse Oximetry 98 100 Labs Results: 02/04/21 06:46 Medications Medications Current Medications Generic Name Dose Route Start Last Admin Trade Name Freq PRN Reason Stop Dose Admin Acetaminophen 650 mg 02/03/21 17:41 Acetaminophen 325 Mg Tablet PO Q6H PRN Headache/Pain Mild Scale (1-3) Al Hydroxide/Mg Hydroxide 30 ml 02/03/21 17:41 Magnesium Hydrox/Alum Hydrox 30 Ml Oral.Susp PO Q6H PRN Heartburn/Nausea Amoxicillin/Clavulanate Potassium 875 mg 02/03/21 23:00 02/06/21 12:05 Amoxicillin/Potassium Clav 2,000 Mg/50 Ml Bottle PO 02/06/21 23:01 875 mg Q12H LONG Administration Hydroxyzine HCl 50 mg 02/03/21 17:41 Hydroxyzine Hcl 25 Mg Tablet PO Q6H PRN Anxiety Magnesium Hydroxide 30 ml 02/03/21 17:41 Milk Of Magnesia 30 Ml Oral.Susp PO DAILY PRN Constipation Olanzapine 10 mg 02/03/21 21:00 02/06/21 09:18 Olanzapine Odt 10 Mg Tab.Rapdis TRANSLINGU 10 mg BID LONG Administration Olanzapine 5 mg 02/03/21 17:55 Olanzapine Odt 10 Mg Tab.Rapdis TRANSLINGU Q6H PRN AGITATION Protocol Sertraline HCl 150 mg 02/06/21 11:25 02/06/21 12:06 Sertraline Hcl 50 Mg Tablet PO 150 mg DAILY LONG Administration Trazodone HCl 50 mg 02/03/21 17:41 Trazodone Hcl 50 Mg Tablet PO BEDTIME PRN Insomnia Allergies Allergies Allergy/AdvReac Type Severity Reaction Status Date / Time cephalexin [From KEFLEX] Allergy Unknown HIVES Verified 02/01/21 06:30 clarithromycin [Prevpac] Allergy Unknown Unknown Verified 02/01/21 06:30 lansoprazole [Prevpac] Allergy Unknown Unknown Verified 02/01/21 06:30 omeprazole [Prilosec] Allergy Unknown Unknown Verified 02/01/21 06:30 Assessment & Plan Assessment & Plan (1) MDD (major depressive disorder), recurrent, severe, with psychosis: Status: Acute Code(s): F33.3 - Major depressive disorder, recurrent, severe with psychotic symptoms (2) Cocaine use disorder, mild, abuse: Status: Acute Code(s): F14.10 - Cocaine abuse, uncomplicated Assessment and Plan: Ms. Riggins is a 25 year-old woman with hx of trauma, depression, voices that appear to be related to trauma who was brought to [facility] after intentional suicide attempt via 34 tablets of wellbutrin. Pt was admitted medically initially, had witnessed seizure, given chaorcoal and Golyte. EKG unremarkable. Pt brought to ICU for behavioral control on precedex, tapered off without problem once pt under more behavioral control on olanzapine 10mg po BID. On unit, pt is oriented, does not recall episodes of agitation while in medical unit but does admit she had OD as suicide attempt. Pt appears to be minimizing severe symptoms of depression and suicide attempt. Mother concerned about her safety and thinks she is not fully forthcoming with OP psych providers. We discussed risks, benefits and alternative treatment options. Pt not open to medication changes at this time in part because she wants to be discharge, but compliant with Olanzapine which was started with intent to control agitation and confusion. PLAN 1. Admit to M3, keep safe, Q15 min checks. 2. decreased olanzapine to 5 mg BID as of 02/06 due to no psychotic disorder. 3. restarted zoloft 150 mg daily as of 02/06. 4. Repeat CBC on 02/04 wnl- continued augmentin. 5. dispo planning. discharge 02/07 due to maturation of 3-day notice and unsuit ability of application for commitment. Greater than 50% of the session was spent on counseling and/or coordination of care Reason for contiued inpatient stay Substantial Risk for: harm to self and rapid decompensation
[2021-02-06 21:46] VITALS: BP 125/62; PULSE 65; TEMP 36.6; O2SAT 96
[2021-02-07 09:06] VITALS: BP 117/73; PULSE 86; RESP 16; TEMP 36.6; O2SAT 97
[2021-02-07] MEDS: Sertraline HCL 50 MG TABLET 150 MG PO (09:08)
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
--- NOTE | 2021-02-07 12:01 | PC.NURSE ---
Patient presented in a cheerful mood with appropriate and congruent affect. Speech was coherent and in a low tone. Fatimah denied SI/HI with no plan or intent. Fatimah also denied any AH/VH. Fatimah stated that she was more than ready to go home . She presented with positive future orientation. Patient was cooperative and appropriate with discharge process. Fatimah denied any current medical complaints. Ambulated off unit with steady gate.
== END 2021-02-07 11:20 | disposition home or self-care (01) | DRG 885 ==
PROVIDERS: Social Worker; Admitting Provider Psychiatry & Neurology Psychiatry; Visit Provider Psychiatry & Neurology Psychiatry
DX: F33.3 Major depressive disorder, recurrent, severe with psychotic symptoms (principal); R45.851 Suicidal ideations; F14.10 Cocaine abuse, uncomplicated; F43.10 Post-traumatic stress disorder, unspecified; F17.210 Nicotine dependence, cigarettes, uncomplicated; Z91.5 Personal history of self-harm; Z71.6 Tobacco abuse counseling; Z79.899 Other long term (current) drug therapy
CPT/HCPCS: 36415; 80061; 82607; 82746; 83036; 84443; 85025